=== PATIENT | male | born 1985 | race Caucasian/White ===

== ENCOUNTER 2018-03-21 21:42 | Emergency (ER) | payer OTHER ==
--- NOTE | 2018-03-21 21:46 | PDOC ---
History of Present Illness - General Chief Complaint: Palpitations Stated Complaint: PALPITATIONS Time Seen by Provider: 03/21/18 21:46 History Source: Patient Exam Limitations: No Limitations - History of Present Illness Initial Comments: 03/21/18 22:45 This is a 32-year-old male who comes in complaining of palpitations. Patient has history of lesions in the past. Patient attempted to take his heart rate and said it was so fast he was unable to count the beats. Patient said symptoms lasted about 5 minutes and then heart rate began to slow down and by the time he got here was normal patient said the symptoms were similar in the past. Last incident was about 2 years ago. Patient otherwise says he is healthy denies any medical problems. During the palpitations patient denies feeling lightheaded nauseous sweaty but did complain of some mild left-sided chest discomfort. Patient described it as a tightness. Patient has no cardiac risk factors including hypertension high cholesterol diabetes or family history. Allergies: None Past Medical History: none Social history: Lives with family. No smoking. No alcohol. No illicit drugs. Surgical history: None General: No fevers or chills, no weakness, no weight loss HEENT: No change in vision. No sore throat,. No ear pain CardioVascular: no chest discomfort. No shortness of breath Respiratory:No cough, or wheezing. Gastrointestinal: no nausea, vomiting, diarrhea or constipation, No rectal bleeding Genitourinary: No dysuria, hematuria, or frequency Musculoskeletal: No joint or muscle pain or swelling Neurologic: No headache, vertigo, dizziness or loss of consciousness Psychiatric: nor depression Skin: No rashes or easy bruising Endocrine: no increased thirst or abnormal weight change Allergic: no skin or latex allergy All other systems reviewed and normal Exam: General: Well-nourished well-developed individual, no acute distress HEENT: Throat: Normal, tonsils normal, no erythema or exudate Neck: Supple, no meningeal signs, no lymphadenopathy Eyes::Pupils equal reactive and round, extraocular motion intact Chest: Nontender to palpation Cardiac: S1-S2 normal, regular rate and rhythm, no murmurs rubs or gallops Respiratory: Lungs clear to auscultation bilateral Abdomen: Soft, nondistended, normal bowel sounds, there is no tenderness on palpation diffusely Extremities: Warm, dry, no cyanosis, clubbing, or edema Skin: No rashes Neuro: Alert and oriented x3, CN II - XII intact, nonfocal exam with normal strength, normal sensation, normal reflexes, normal gait, Psych: Normal mood and affect EKG showed normal sinus rhythm no acute ST-T wave changes, normal intervals normal EKG Assessment and plan: This is a 32-year-old male with palpitations that resolved after a few minutes. Patient's symptoms most likely was secondary to an SVT. Patient has a primary care doctor he will follow-up with for referral to a hedis abstractor next week. Past History - Past Medical History Allergies/Adverse Reactions: Allergies Allergy/AdvReac Type Severity Reaction Status Date / Time No Known Allergies Allergy Verified 03/21/18 21:46 Home Medications: Ambulatory Orders NK [No Known Home Medication] 03/21/18 *Physical Exam - Vital Signs Last Vital Signs Temp Pulse Resp BP Pulse Ox 97.5 F L 85 17 120/87 98 03/21/18 21:43 03/21/18 21:43 03/21/18 21:43 03/21/18 21:43 03/21/18 21:43 Moderate Sedation - Procedure Monitoring Vital Signs: Procedure Monitoring Vital Signs Temperature 97.5 F L 03/21/18 21:43 Pulse Rate 85 03/21/18 21:43 Respiratory Rate 17 03/21/18 21:43 Blood Pressure 120/87 03/21/18 21:43 O2 Sat by Pulse Oximetry (%) 98 03/21/18 21:43 *DC/Admit/Observation/Transfer Diagnosis at time of Disposition: Palpitations - Discharge Dispostion Disposition: HOME Condition at time of disposition: Good Decision to Admit order: No - Referrals Referrals: Ciro Carmona [Primary Care Provider] - - Patient Instructions Additional Instructions: It is important to follow up with a hedis abstractor this next week. Return to the emergency department immediately with ANY new, persistent or worsening symptoms. Continue any medications as previously prescribed by your physician. You should follow up with your primary doctor as soon as possible regarding today's emergency department visit. . Please make sure your doctor reviews the results of your emergency evaluation. Thank you for coming to the Emergency Department today for your care. It was a pleasure to see you today. Please note that your evaluation is INCOMPLETE until you follow-up with your doctor. - Post Discharge Activity
[2018-03-21 21:57] VITALS: BP 120/87; PULSE 85; TEMP 97.5; BMI 24.7
--- NOTE | 2018-03-24 18:18 | EKG ---
Test Reason : Blood Pressure : / mmHG Vent. Rate : 083 BPM Atrial Rate : 083 BPM P-R Int : 136 ms QRS Dur : 098 ms QT Int : 356 ms P-R-T Axes : 035 046 048 degrees QTc Int : 418 ms NORMAL SINUS RHYTHM NORMAL ECG NO PREVIOUS ECGS AVAILABLE Confirmed by MD KATH, HAVEN ([id number]) on 03/24/2018 6:17:54 PM Referred By: NEGRO Confirmed By:HAVEN STOCKTON MD
== END 2018-03-21 22:15 | disposition home or self-care (01) ==
LOC: FER 21:42
DX: R00.2 Palpitations (principal)
CPT/HCPCS: 93005; 99283-25